=== PATIENT | male | born 1955 ===

== ENCOUNTER 2021-09-20 17:24 | Emergency (ER) | payer OTHER ==
[~2021-09-20] VITALS: Ht 185.4 cm; Wt 82.6 kg
[2021-09-20 17:28] VITALS: BP 110/71
== END 2021-09-20 21:13 | disposition left against medical advice (07) ==
LOC: ER 17:24
DX: R53.1 Weakness (principal); Z53.21 Procedure and treatment not carried out due to patient leaving prior to being seen by health care provider
CPT/HCPCS: 74176; 93005